=== PATIENT | male | born 1975 | race African-American/Black ===

== ENCOUNTER 2023-06-25 17:35 | Emergency (ER) | payer OTHER, SELFPAY ==
--- NOTE | ~2023-06-25 | US_ITS ---
EXAMINATION:US venous doppler LE RT INDICATION:Leg cramps TECHNIQUE: Multiple grayscale, color flow and Doppler images of the right lower extremity deep venous systems were obtained and reviewed. COMPARISON:No prior studies for comparison. FINDINGS: The common femoral, superficial femoral and popliteal veins demonstrate normal respiratory variation, augmentation and compressibility. Color flow is also seen within the posterior tibial, pe roneal, greater saphenous and profunda veins. IMPRESSION: 1: No lower extremity deep venous thrombosis. Reviewed, dictated and finalized at location A.
[2023-06-25 17:43] VITALS: BP 126/66; PULSE 85; RESP 20; TEMP 36.2; O2SAT 100
--- NOTE | 2023-06-25 19:36 | PC.NURSE ---
patient states that wait is too long and states he will see his doctor in the am
== END 2023-06-25 21:12 | disposition left against medical advice (07) ==
PROVIDERS: Emergency Provider Emergency Medicine; PCP Internal Medicine
DX: R25.2 Cramp and spasm (principal)
CPT/HCPCS: 93971; 99199